=== PATIENT | male | born 1990 | race Caucasian/White ===

== ENCOUNTER 2020-10-19 21:32 | Emergency (ER) | payer OTHER ==
[2020-10-19 22:28] LABS: BASOPHIL 0.3 % (0-2); EOSINOPHIL 0.5 % (0-5); HCT 51.2 % (42.0-52.0); HGB 18.2 g/dl (13.2-18.0); LYMPHOCYTE 16.5 % (15-48); MCH 33.5 pg (25.0-31.0); MCHC 35.5 g/dL (32.0-36.0); MCV 94.1 fL (78.0-100.0); MONOCYTE 11.4 % (0-12); MPV 8.9 fL (6.0-9.5); NEUTROPHIL 70.9 % (41-80); NRBC 0; PLT 257 K/uL (150-400); RBC 5.44 M/uL (4.70-6.00); RDW 11.9 % (11.5-14.0); WBC 11.8 K/uL (4.0-10.5)
[2020-10-19 22:42] LABS: ALBUMIN 4.5 g/dL (3.4-5.0); BILIRUBIN - TOTAL 1.2 mg/dL (0.2-1.0); BUN/CREAT RATIO (CALC) 6.7 RATIO; CREATININE 0.6 mg/dL (0.67-1.17); GLOBULIN (CALCULATION) 3.2 g/dL; POTASSIUM 3.9 mmol/L (3.5-5.1); TOTAL PROTEIN 7.7 g/dL (6.4-8.2)
[2020-10-20] MEDS ORDERED: PROTONIX 40MG T40 MG PO
[2020-10-20] MEDS ORDERED: BENTYL10 MG PO (00:01)
[2020-10-20] MEDS ORDERED: CARAFATE1 GM PO (00:01)
== END 2020-10-20 00:32 | disposition home or self-care (01) ==
LOC: FER 21:32
PROVIDERS: Emergency Medicine Emergency Medical Services
DX: R10.10 Upper abdominal pain, unspecified (principal); R19.7 Diarrhea, unspecified; F17.210 Nicotine dependence, cigarettes, uncomplicated; Z90.49 Acquired absence of other specified parts of digestive tract
CPT/HCPCS: 36415; 74018; 80053; 83690; 85025; J1885